=== PATIENT | female | born 1965 | race Caucasian/White ===

== ENCOUNTER 2016-04-30 15:17 | Emergency (ER) | payer OTHER ==
[2016-04-30 15:27] VITALS: TEMP 98.6; BMI 31.7
[2016-04-30] MEDS ORDERED: OXYCODONE HCL 5 MG TABLET PO ONE (15:34)
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
[2016-04-30] MEDS ORDERED: KETOROLAC TROMETHAMINE 60 MG/2 ML SDV IM ONE (17:00)
[2016-04-30] MEDS ORDERED: DIAZEPAM 5 MG TAB PO ONE (17:00)
[2016-04-30 17:37] VITALS: BP 145/76; PULSE 96
== END 2016-04-30 17:45 | disposition home or self-care (01) ==
LOC: ED 15:17
DX: S80.10XA Contusion of unspecified lower leg, initial encounter (principal); S80.01XA Contusion of right knee, initial encounter; V49.40XA Driver injured in collision with unspecified motor vehicles in traffic accident, initial encounter; Y93.9 Activity, unspecified; Y92.410 Unspecified street and highway as the place of occurrence of the external cause
CPT/HCPCS: 71020; 73564; 73590; 96372; 99284; J1885; J3490